=== PATIENT | female | born 1930 | race Two or more races ===

== ENCOUNTER → 2016-09-20 | Outpatient (REF) | payer MEDICARE, OTHER ==
[~2016-09-20] MED LIST: /AMIO20TA; /PANT40TA; /WARF25TA; /WARF4TA; ACET65TA; AMIO400T; ARTISOL10; ATIV0.5T; CALC12502; CARV12.5; CATA0.2D3; CLAR5CHW; HYDR25TA6; HYDR25TA7; LEVO100T7; LEVOXYL25 MCG; LIDO5DIS; MAVI4TAB; POLYMYXIN; PREDNISOLINE; PREDNISOLONE 1%; SENN8.6T5; SIMV20TA2; TIMO0.5S; TRAM50TA2; [UNRECOGNIZED DRUG - CODE]; [UNRECOGNIZED DRUG - OTHER]; restasis
== END ==
LOC: M LAB REF 12:40
PROVIDERS: ATTEND Internal Medicine
DX: I10 Essential (primary) hypertension (principal)

== ENCOUNTER → 2017-01-17 | Outpatient (REF) | payer MEDICARE, OTHER | LOC: M LAB REF 16:44 | PROVIDERS: ATTEND Internal Medicine | DX: I10 Essential (primary) hypertension (principal); E11.65 Type 2 diabetes mellitus with hyperglycemia; I48.91 Unspecified atrial fibrillation ==

== ENCOUNTER → 2017-04-15 | Outpatient (REF) | payer MEDICARE, OTHER ==
[~2017-04-15] MED LIST changes: +CART300C PO; +DIGO0.12 PO; +ELIQ2.5T PO; +ISOS60TA2 PO; +PRAV40TA2 PO; +SYNT88TA2 PO; +TOPR100T PO; +ULTR50TA8 PO; +ZOFR4TAB3 PO; +ZOLO50TA PO
[2017-04-15 21:59] LABS: MICROSCOPIC INDICATED? MAN YES (NO)
[2017-04-15 22:06] LABS: BACTERIA, URINE MOD AMOUNT; HYALINE CAST, URINE NONE SEEN /lpf (0-1); RBC, URINE TNTC /hpf (0-3); SQUAMOUS EPITHELIAL CELL URINE SMALL AMOUNT /hpf (SMALL AMT)
[2017-04-15 22:07] LABS: TRANSITIONAL EPI CELLS, URINE SMALL AMOUNT /hpf
[2017-04-15 22:08] LABS: MICROSCOPIC EXAM PERFORMED
== END ==
LOC: M LAB REF 21:47
PROVIDERS: ATTEND Physician Assistant Medical
DX: N39.0 Urinary tract infection, site not specified (principal)

== ENCOUNTER → 2017-05-03 | Outpatient (REF) | payer MEDICARE, OTHER ==
[2017-05-03 13:22] LABS: MICROSCOPIC INDICATED? MAN YES (NO)
[2017-05-03 13:35] LABS: WBC, URINE NONE SEEN /hpf (0-3)
[2017-05-03 13:36] LABS: BACTERIA, URINE LARGE AMOUNT; HYALINE CAST, URINE NONE SEEN /lpf (0-1); MICROSCOPIC EXAM PERFORMED; RBC, URINE TNTC /hpf (0-3); SQUAMOUS EPITHELIAL CELL URINE NONE SEEN /hpf (SMALL AMT)
== END ==
LOC: M LAB REF 13:10
PROVIDERS: ATTEND Internal Medicine
DX: R31.9 Hematuria, unspecified (principal)

== ENCOUNTER → 2017-05-08 | Outpatient (REF) | payer MEDICARE, OTHER | LOC: M LAB REF 13:18 | PROVIDERS: ATTEND Internal Medicine | DX: I48.0 Paroxysmal atrial fibrillation (principal); R79.89 Other specified abnormal findings of blood chemistry; E78.00 Pure hypercholesterolemia, unspecified ==

== ENCOUNTER → 2017-06-14 | Outpatient (REF) | payer MEDICARE, OTHER | LOC: M LAB REF 16:22 | PROVIDERS: ATTEND Internal Medicine | DX: N20.0 Calculus of kidney (principal) ==

== ENCOUNTER → 2017-07-05 | Outpatient (REF) | payer MEDICARE, OTHER | LOC: M LAB REF 12:43 | PROVIDERS: ATTEND Internal Medicine | DX: N20.0 Calculus of kidney (principal) ==

== ENCOUNTER → 2017-07-24 | Outpatient (REF) | payer MEDICARE, OTHER | LOC: M LAB REF 18:04 | PROVIDERS: ATTEND Internal Medicine | DX: I48.0 Paroxysmal atrial fibrillation (principal) ==

== ENCOUNTER → 2017-11-02 | Outpatient (REF) | payer MEDICARE, OTHER ==
[2017-11-02 13:42] LABS: INR 1.02; PROTHROMBIN TIME 13.6 SECONDS (12.4-14.5)
[2017-11-02 13:43] LABS: AMORPHOUS SEDIMENT SMALL (NEGATIVE); APPEARANCE, URINE HAZY (CLEAR); BACTERIA, URINE AUTO NEGATIVE (NEGATIVE); BILIRUBIN, URINE AUTO NEGATIVE (NEGATIVE); BLOOD, URINE BLOOD NEGATIVE (NEGATIVE); COLOR, URINE YELLOW (YELLOW); GLUCOSE, URINE (UA) AUTO NEGATIVE (NEGATIVE); KETONE, URINE AUTO NEGATIVE (NEGATIVE); LEUKOCYTE ESTERASE, URINE AUTO 1+ (NEGATIVE); MUCUS, URINE SMALL (NEGATIVE); NITRITE, URINE AUTO NEGATIVE (NEGATIVE); PARTIAL THROMBOPLASTIN TIME 46.3 SECONDS (26.8-37.9); PROTEIN, URINE AUTO 2+ mg/dL (NEGATIVE); RBC, URINE AUTO 8 /HPF (0-3); SPECIFIC GRAVITY URINE AUTO 1.024 (1.002-1.035); SQUAMOUS EPITHELIAL CELL UR AU 1 /HPF (0-6); UROBILINOGEN, URINE AUTO 0.2 mg/dL (0.0-2.0); WBC, URINE AUTO 6 /HPF (0-3)
[2017-11-02 14:34] LABS: DIGOXIN LEVEL 1.4 NG/ML (0.5-2.0)
== END ==
LOC: M LAB REF 13:23
DX: Z01.818 Encounter for other preprocedural examination (principal); N20.0 Calculus of kidney; I48.0 Paroxysmal atrial fibrillation
CPT/HCPCS: 80162

== ENCOUNTER → 2017-11-30 | Outpatient (REF) | payer MEDICARE, OTHER | LOC: M LAB REF 17:29 | DX: N39.0 Urinary tract infection, site not specified (principal) | CPT/HCPCS: 87186 ==